=== PATIENT | female | born 1990 | race Asian ===

== ENCOUNTER → 2018-04-14 | Outpatient (CLI) | payer OTHER ==
[2018-04-14 08:30] LABS: UA SPECIFIC GRAVITY >=1.030 (1.005-1.035); microscopic required? YES; urine erythrocyte TRACE (NEGATIVE)
[2018-04-14 08:37] LABS: BASOPHIL % 0.4 % (0-2); PLATELET COUNT 348 x10^3mcL (130-400); RED CELL DISTRIBUTION WIDTH 13.2 % (11.5-14.5)
[2018-04-14 08:59] LABS: ALKALINE PHOSPHATASE 66 U/L (46-116); ALT/SGPT 19 U/L (14-59); AST/SGOT 12 U/L (15-37); BILIRUBIN TOTAL 0.1 mg/dL (0.20-1.00); CALCIUM 9.2 mg/dL (8.5-10.1); CARBON DIOXIDE 25.5 mmol/L (21-32); CHLORIDE SERUM 105 mmol/L (98-107); CHOLESTEROL 181 mg/dL (<200); CREATININE SERUM 0.7 mg/dL (0.6-1.0); FREE T4 1.56 ng/dL (0.76-1.46); GFR1 > 60 mL/min; GLUCOSE SERUM 100 mg/dL (74-106); POTASSIUM SERUM 3.8 mmol/L (3.5-5.1); SODIUM SERUM 138 mmol/L (136-145); TRIGLYCERIDES 101 mg/dL (<150)
[2018-04-14 09:04] LABS: CHOLESTEROL/HDL RATIO 5.3; HDL CHOLESTEROL 34 mg/dL (40-60)
[2018-04-15 09:00] LABS: VITAMIN D 25-HYDROXY 8.7 ng/mL (30.0-100.0)
== END | disposition home or self-care (01) ==
LOC: US 07:47
PROC: BG44ZZZ Ultrasonography of Thyroid Gland (ICD-10-PCS; principal; 2018-04-14)
DX: E03.9 Hypothyroidism, unspecified (principal)
CPT/HCPCS: 84439

== ENCOUNTER → 2018-12-24 | Outpatient (CLI) | payer OTHER ==
[2018-12-24 11:51] LABS: BASOPHIL % 0.4 % (0-2); PLATELET COUNT 355 x10^3mcL (130-400); RED CELL DISTRIBUTION WIDTH 13.1 % (11.5-14.5)
[2018-12-24 12:09] LABS: ALKALINE PHOSPHATASE 56 U/L (46-116); ALT/SGPT 17 U/L (14-59); AST/SGOT 6 U/L (15-37); BILIRUBIN TOTAL 0.16 mg/dL (0.20-1.00); CALCIUM 9.5 mg/dL (8.5-10.1); CHLORIDE SERUM 103 mmol/L (98-107); CHOLESTEROL 190 mg/dL (<200); CREATININE SERUM 0.7 mg/dL (0.6-1.0); FREE T4 0.78 ng/dL (0.76-1.46); GFR1 > 60 mL/min; GLUCOSE SERUM 95 mg/dL (74-106); POTASSIUM SERUM 3.7 mmol/L (3.5-5.1); SODIUM SERUM 139 mmol/L (136-145); TOTAL PROTEIN, SERUM 7.8 g/dL (6.4-8.2); TRIGLYCERIDES 121 mg/dL (<150)
[2018-12-24 12:10] LABS: CHOLESTEROL/HDL RATIO 5.8; HDL CHOLESTEROL 33 mg/dL (40-60)
[2018-12-24 12:15] LABS: UA SPECIFIC GRAVITY >=1.030 (1.005-1.035); microscopic required? YES; urine erythrocyte TRACE (NEGATIVE)
[2018-12-26 08:08] LABS: MUMPS AB IGG 44.6 AU/mL (Immune >10.9)
== END | disposition home or self-care (01) ==
LOC: LB 11:04
PROVIDERS: Internal Medicine
DX: E03.9 Hypothyroidism, unspecified (principal)
CPT/HCPCS: 84439; 86787

== ENCOUNTER → 2019-01-02 | Outpatient (CLI) | payer OTHER | END | disposition home or self-care (01) | LOC: RD 15:24 | DX: R76.11 Nonspecific reaction to tuberculin skin test without active tuberculosis (principal) ==

== ENCOUNTER → 2019-07-14 | Outpatient (CLI) | payer OTHER ==
[2019-07-14 11:45] LABS: BASOPHIL % 0.3 % (0-2); RED CELL DISTRIBUTION WIDTH 14.2 % (11.5-14.5)
[2019-07-14 11:54] LABS: PLATELET COUNT 410 x10^3mcL (130-400)
[2019-07-14 12:05] LABS: ALBUMIN 4.3 g/dL (3.4-5.0); ALKALINE PHOSPHATASE 70 U/L (46-116); ALT/SGPT 17 U/L (14-59); AST/SGOT 11 U/L (15-37); BILIRUBIN TOTAL 0.3 mg/dL (0.20-1.00); CALCIUM 9.4 mg/dL (8.5-10.1); CARBON DIOXIDE 27.7 mmol/L (21-32); CHLORIDE SERUM 103 mmol/L (98-107); CREATININE SERUM 0.7 mg/dL (0.6-1.0); GFR1 > 60 mL/min; GLUCOSE SERUM 93 mg/dL (74-106); POTASSIUM SERUM 4.4 mmol/L (3.5-5.1); SODIUM SERUM 140 mmol/L (136-145)
[2019-07-14 12:07] LABS: TOTAL PROTEIN, SERUM 8.5 g/dL (6.4-8.2)
== END | disposition home or self-care (01) ==
LOC: LB 11:17
DX: E03.9 Hypothyroidism, unspecified (principal)

== ENCOUNTER 2019-08-20 14:20 | Emergency (ER) | payer OTHER ==
[~2019-08-20] VITALS: Ht 160 cm; Wt 56.2 kg
[2019-08-20 14:22] VITALS: Ht 160 cm; Wt 56.2 kg
[2019-08-20 15:46] LABS: BASOPHIL % 0.7 % (0-2); PLATELET COUNT 421 x10^3mcL (130-400); RED CELL DISTRIBUTION WIDTH 13.2 % (11.5-14.5)
[2019-08-20 16:13] LABS: CALCIUM 9.2 mg/dL (8.5-10.1); CARBON DIOXIDE 30.2 mmol/L (21-32); CHLORIDE SERUM 107 mmol/L (98-107); CREATININE SERUM 0.6 mg/dL (0.6-1.0); GFR1 > 60 mL/min; GLUCOSE SERUM 84 mg/dL (74-106); SODIUM SERUM 139 mmol/L (136-145)
[2019-08-20 16:18] LABS: ALBUMIN 3.9 g/dL (3.4-5.0); ALKALINE PHOSPHATASE 71 U/L (46-116); ALT/SGPT 21 U/L (14-59); AST/SGOT 11 U/L (15-37); BILIRUBIN TOTAL 0.17 mg/dL (0.20-1.00); TOTAL PROTEIN, SERUM 7.8 g/dL (6.4-8.2)
[2019-08-20 16:29] LABS: T3 TOTAL 1.28 ng/mL
[2019-08-20 16:30] LABS: FREE T4 1.53 ng/dL (0.76-1.46); T4(THYROXINE) 12.1 ug/dL (4.7-13.3)
[2019-08-20 17:09] VITALS: BP 100/68
== END 2019-08-20 17:09 | disposition home or self-care (01) ==
LOC: ED 14:20
PROVIDERS: Emergency Medicine
DX: R42 Dizziness and giddiness (principal); E05.90 Thyrotoxicosis, unspecified without thyrotoxic crisis or storm
CPT/HCPCS: 36415; 84439; J8597

== ENCOUNTER 2019-08-24 21:51 | Emergency (ER) | payer OTHER ==
[~2019-08-24] VITALS: Ht 160 cm; Wt 57.6 kg
[2019-08-24 22:01] VITALS: Ht 160 cm; Wt 57.6 kg
[2019-08-24 23:05] LABS: BASOPHIL % 0.3 % (0-2); RED CELL DISTRIBUTION WIDTH 13.3 % (11.5-14.5)
[2019-08-24 23:08] LABS: PLATELET COUNT 464 x10^3mcL (130-400)
[2019-08-24 23:24] LABS: CARBON DIOXIDE 28.4 mmol/L (21-32); CHLORIDE SERUM 105 mmol/L (98-107); CREATININE SERUM 0.7 mg/dL (0.6-1.0); GFR1 > 60 mL/min; GLUCOSE SERUM 91 mg/dL (74-106); POTASSIUM SERUM 4.2 mmol/L (3.5-5.1); SODIUM SERUM 141 mmol/L (136-145)
[2019-08-24 23:37] LABS: ALBUMIN 4.1 g/dL (3.4-5.0); ALKALINE PHOSPHATASE 69 U/L (46-116); ALT/SGPT 22 U/L (14-59); AST/SGOT 14 U/L (15-37); BILIRUBIN TOTAL 0.2 mg/dL (0.20-1.00); FREE T4 1.56 ng/dL (0.76-1.46); TOTAL PROTEIN, SERUM 7.7 g/dL (6.4-8.2)
[2019-08-25 03:25] VITALS: BP 112/86
== END 2019-08-25 03:00 | disposition home or self-care (01) ==
LOC: ED 21:51
PROVIDERS: Emergency Medicine
DX: R42 Dizziness and giddiness (principal)
CPT/HCPCS: 36415; 84439; J8597

== ENCOUNTER → 2019-12-16 | Outpatient (CLI) | payer OTHER | END | disposition home or self-care (01) | LOC: LB 12:27 | DX: E03.9 Hypothyroidism, unspecified (principal) ==

== ENCOUNTER → 2020-01-29 | Outpatient (CLI) | payer OTHER ==
[2020-01-29 10:50] LABS: FREE T4 1.12 ng/dL (0.76-1.46)
== END | disposition home or self-care (01) ==
LOC: LB 09:43
PROVIDERS: ATTEND Internal Medicine
DX: E03.9 Hypothyroidism, unspecified (principal)
CPT/HCPCS: 84439